=== PATIENT | male | born 1975 | race Caucasian/White ===

== ENCOUNTER 2023-08-13 18:36 | Outpatient (REF) | payer MEDICAID, SELFPAY ==
[2023-08-13 21:38] LABS: Abs Immature Grans 0.01 10^3/uL (0.0-0.06); Absolute Eosinophil Count 0.39 10^3/uL (0.0-0.7); Absolute Lymphocyte Count 2.18 10^3/uL (1.2-3.4); Absolute Monocyte Count 0.52 10^3/uL (0.1-0.8); Absolute Neutrophil Count 2.99 10^3/uL (1.2-6.7); Basophils % 1.6; Eosinophils % 6.3; HCT 49.2 % (40.0-50.0); Immature Grans % 0.2; Lymphocytes % 35.2; MCH 31.5 pg (27.0-33.0); MCHC 34.6 % (32.0-36.0); MCV 91 fL (80-95); MPV 9.4 fL (8.0-11.0); Monocytes % 8.4; Neutrophils % 48.3; Platelet Count 285 10^3/uL (130-400); RDW 11.9 % (11.8-14.1); RDW-SD 39.6 fL; WBC 6.19 10^3/uL (4.4-10.8)
[2023-08-13 22:06] LABS: ALT 28 U/L (16-63); AST 14 U/L (15-37); Alkaline Phosphatase 89 U/L (46-116); Anion Gap 7.6 mmol/L (3-11); BUN 16 mg/dL (7-18); Bilirubin, Total 0.8 mg/dL (0.2-1.0); CO2 29.4 mmol/L (21.0-32.0); CREATININE 1.2 mg/dL (0.70-1.30); Calcium 9.7 mg/dL (8.5-10.1); Chloride 105 mmol/L (98-107); Estimated GFR 75.06 (mL/min/1.73m2); Glucose 90 mg/dL (74-106); Potassium 4.4 mmol/L (3.5-5.1); Sodium 142 mmol/L (136-145); Total Protein 7.4 g/dL (6.4-8.2)
[2023-08-13 22:18] LABS: C-Reactive Protein < 0.50 mg/dL (<or=0.5)
== END 2023-08-13 18:37 | disposition home or self-care (01) ==
LOC: LBN 18:36
PROVIDERS: Visit Provider Physician Assistant Medical
DX: R10.32 Left lower quadrant pain (principal); R53.83 Other fatigue
CPT/HCPCS: 80053; 84443; 85025; 86140

== ENCOUNTER 2024-01-31 12:35 | Outpatient (CLI) | payer MEDICAID, SELFPAY ==
[2024-02-02 13:03] LABS: HIV-1/2 Ag & Ab Screen Negative (Negative)
[2024-02-03 10:35] LABS: Syphilis Serology (RPR) Negative (Negative)
[2024-02-03 13:07] LABS: Hep B Core Antibody Negative (Negative)
== END 2024-01-31 12:36 | disposition home or self-care (01) ==
LOC: LBO 12:36
PROVIDERS: PCP Nurse Practitioner Family; Visit Provider Nurse Practitioner Family
DX: Z11.3 Encounter for screening for infections with a predominantly sexual mode of transmission (principal); Z23 Encounter for immunization; F32.9 Major depressive disorder, single episode, unspecified; K21.9 Gastro-esophageal reflux disease without esophagitis; Z00.00 Encounter for general adult medical examination without abnormal findings
CPT/HCPCS: 36415; 86704; 87389; 86592

== ENCOUNTER 2024-05-29 15:00 | Outpatient (CLI) | payer MEDICAID, SELFPAY ==
[2024-05-29 15:33] LABS: HCT 49.2 % (40.0-50.0); HGB 16.9 g/dL (13.5-17.5); MCH 31.1 pg (27.0-33.0); MCHC 34.3 % (32.0-36.0); MCV 91 fL (80-95); MPV 9.1 fL (8.0-11.0); Platelet Count 262 10^3/uL (130-400); RBC 5.43 10^6/uL (4.36-5.78); RDW 12.1 % (11.8-14.1); RDW-SD 39.9 fL
[2024-05-29 16:27] LABS: ALT 24 U/L (16-63); AST 17 U/L (15-37); Albumin 4.1 g/dL (3.4-5.0); Alkaline Phosphatase 88 U/L (46-116); Anion Gap 7.3 mmol/L (3-11); BUN 21 mg/dL (7-18); Bilirubin, Total 1.25 mg/dL (0.2-1.0); CO2 30.7 mmol/L (21.0-32.0); CREATININE 1.3 mg/dL (0.70-1.30); Calcium 9.5 mg/dL (8.5-10.1); Chloride 106 mmol/L (98-107); Estimated GFR 67.76 (mL/min/1.73m2); Glucose 101 mg/dL (74-106); Potassium 4.5 mmol/L (3.5-5.1); Sodium 144 mmol/L (136-145); Total Protein 7.7 g/dL (6.4-8.2)
[2024-06-01 10:17] LABS: Lyme Ab w Rflx to Lyme Confirm Negative (Negative)
[2024-06-02 13:17] LABS: Anaplasma phagocytophilum Negative (Negative); B. miyamotoi PCR Negative (Negative); Babesia divergens/MO-1 Negative (Negative); Babesia duncani Negative (Negative); Babesia microti Negative (Negative); Ehrlichia chaffeensis Negative (Negative); Ehrlichia ewingii/canis Negative (Negative); Ehrlichia muris eauclairensis Negative (Negative)
== END 2024-05-29 15:01 | disposition home or self-care (01) ==
LOC: LBO 15:04
PROVIDERS: PCP Nurse Practitioner Family; Visit Provider Nurse Practitioner Family
DX: M35.3 Polymyalgia rheumatica (principal)
CPT/HCPCS: 36415; 80053; 85027; 87798; 86618

== ENCOUNTER 2024-07-13 15:25 | Outpatient (CLI) | payer MEDICAID, SELFPAY ==
[2024-07-13 13:39] LABS: Kit/Specimen SENT
[2024-07-13 15:04] LABS: FREE T4 0.97 ng/dL (0.76-1.46); TSH 2.04 uIU/mL (0.36-3.74); Vitamin B12 506 pg/mL (193-986); Vitamin D 25 Total 23.7 ng/mL (30-100)
[2024-07-13 15:05] LABS: Folate > 20.0 ng/mL (8.6-20.0)
[2024-07-13 21:18] LABS: Rheumatoid Factor <8.6 IU/mL (<12.0)
[2024-07-13 21:33] LABS: T3,Free 3.8 pg/mL (2.8-5.3)
[2024-07-14 09:39] LABS: ANA Interpretation Negative (Negative)
== END 2024-07-13 15:26 | disposition home or self-care (01) ==
LOC: LBO 15:27
PROVIDERS: PCP Nurse Practitioner Family; Visit Provider Naturopath
DX: R42 Dizziness and giddiness (principal); R53.83 Other fatigue; R00.2 Palpitations; R07.9 Chest pain, unspecified; E07.9 Disorder of thyroid, unspecified
CPT/HCPCS: 36415; 82306; 82607; 82746; 84439; 84443; 84481; 86038; 86431

== ENCOUNTER 2024-07-17 00:24 | Outpatient (CLI) | payer MEDICAID, SELFPAY ==
--- NOTE | 2024-07-17 | DI.RAD_ITS ---
Exam(s) XR SHOULDER RT COMPLETE 2+V EXAM: XR SHOULDER RT COMPLETE 2+V CLINICAL HISTORY: Pain in rt shoulder, M25.511, ? arthritis. TECHNIQUE: 2D digital imaging was performed of the right shoulder. Five images were obtained. AP, Grashey, Y-view and axillary views were obtained. COMPARISON: No exams were available for comparison FINDINGS: BONES: No acute fracture is present. No bony destructive lesion is seen. JOINTS: No dislocation present. The joint spaces are well maintained. SOFT TISSUE: Normal. IMPRESSION: Unremarkable radiographs of the right shoulder. DATA REPOSITORY: RADIATION DOSE DELIVERED:
--- NOTE | 2024-07-17 | DI.RAD_ITS ---
Exam(s) XR KNEE RT 3V AP,LAT,BHARATH EXAM: XR KNEE RT 3V AP,LAT,BHARATH CLINICAL HISTORY: Pain in rt knee, M25.561, ? arthritis. TECHNIQUE: 2D digital imaging was performed of the right knee. Three views obtained. AP, lateral an d PA tunnel views were obtained. COMPARISON: No exams were available for comparison FINDINGS: BONES: No acute fracture is present. No bony destructive lesion is seen. There is an enthesophyte at the superior patella. JOINTS: The knee is normally aligned. No joint effusion is seen. SOFT TISSUE: There is a small calcification adjacent to the medial femoral condyle which may reflect remote injury. IMPRESSION: No significant arthrosis. DATA REPOSITORY: RADIATION DOSE DELIVERED:
--- NOTE | 2024-07-17 | DI.RAD_ITS ---
Exam(s) XR HAND RT COMPLETE EXAM: XR HAND RT COMPLETE CLINICAL HISTORY: Pain in rt hand, M79.641, ? arthritis. TECHNIQUE: 2D digital imaging was performed of the right hand. Three images were obtained. AP, late ral and oblique views were obtained. COMPARISON: No exams were available for comparison FINDINGS: BONES: No acute fracture is present. No bony destructive lesion is seen. JOINTS: No dislocation present. The joint spaces are well maintained. SOFT TISSUE: Normal. IMPRESSION: There is no arthrosis of the right hand. DATA REPOSITORY: RADIATION DOSE DELIVERED:
--- NOTE | 2024-07-17 | DI.RAD_ITS ---
Exam(s) XR HAND LT COMPLETE EXAM: XR HAND LT COMPLETE CLINICAL HISTORY: pain in lt hand, M79.642, ? arthritis. TECHNIQUE: 2D digital imaging was performed of the left hand. Three views were obtained. AP, later al and oblique views were obtained. COMPARISON: No exams were available for comparison FINDINGS: BONES: No acute fracture is present. No bony destructive lesion is seen. There is a bone island in th e lunate. JOINTS: No dislocation present. The joint spaces are well maintained. SOFT TISSUE: Normal. IMPRESSION: No arthrosis is seen in the left hand. DATA REPOSITORY: RADIATION DOSE DELIVERED:
--- NOTE | 2024-07-17 | DI.RAD_ITS ---
Exam(s) XR SHOULDER LT COMPLETE 2+V EXAM: XR SHOULDER LT COMPLETE 2+V CLINICAL HISTORY: Pain in lt shoulder, M25.512, ? arthritis. TECHNIQUE: 2D digital imaging was performed of the left shoulder. Five images were obtained. AP, G rashey, Y-view and axillary views were obtained. COMPARISON: No exams were available for comparison FINDINGS: BONES: No acute fracture is present. No bony destructive lesion is seen. JOINTS: No dislocation present. The joint spaces are well maintained without evidence of arthrosis. SOFT TISSUE: Normal. IMPRESSION: Unremarkable radiographs of the left shoulder. DATA REPOSITORY: RADIATION DOSE DELIVERED:
--- NOTE | 2024-07-17 | DI.RAD_ITS ---
Exam(s) XR KNEE LT 3V AP,LAT,BHARATH EXAM: XR KNEE LT 3V AP,LAT,BHARATH CLINICAL HISTORY: Pain in lt knee, M25.562, ? arthritis. TECHNIQUE: 2D digital imaging was performed of the left knee. Three images were obtained. AP, late ral and PA tunnel views were obtained. COMPARISON: No priors for comparison. FINDINGS: BONES: No acute fracture is present. No bony destructive lesion is seen. There is a small enthesophy te at the superior patella. JOINTS: The knee is normally aligned. No joint effusion is seen. No loose body. SOFT TISSUE: There well corticated osseous densities anterior to the anterior tibial tuberosity which are chronic. IMPRESSION: No significant arthrosis. DATA REPOSITORY: RADIATION DOSE DELIVERED:
== END 2024-07-17 00:44 ==
LOC: DI 00:24
PROVIDERS: PCP Nurse Practitioner Family; Visit Provider Naturopath
DX: M25.512 Pain in left shoulder (principal); M25.511 Pain in right shoulder; M25.562 Pain in left knee; M25.561 Pain in right knee; M79.641 Pain in right hand; M79.642 Pain in left hand
CPT/HCPCS: 73562; 73030; 73130

== ENCOUNTER 2025-02-25 16:28 | Outpatient (CLI) | payer BC, SELFPAY ==
[2025-02-25 18:14] LABS: Calculated LDL 131 mg/dL (<100); Cholesterol 204 mg/dL (<200); HDL Cholesterol 46 mg/dL (>or=40); Triglyceride 138 mg/dL (<150)
== END 2025-02-25 16:29 | disposition home or self-care (01) ==
LOC: LBO 16:28
PROVIDERS: PCP Family Medicine; Visit Provider Family Medicine
DX: Z13.220 Encounter for screening for lipoid disorders (principal)
CPT/HCPCS: 36415; 80061

== ENCOUNTER 2025-05-31 18:21 | Emergency (ER) | payer OTHER, SELFPAY ==
[2025-05-31 18:25] VITALS: BP 161/77; PULSE 61; RESP 16; TEMP 37; O2SAT 98
--- NOTE | 2025-05-31 18:30 | DI.RAD_ITS ---
Exam(s) XR KNEE LT 3V AP,LAT,BHARATH EXAM: XR KNEE LT 3V AP,LAT,BHARATH CLINICAL HISTORY: L knee pain. TECHNIQUE: 2D digital imaging was performed of the left knee. Three images were obtained. AP, lateral and PA tunnel views were obtained. COMPARISON: CR XR KNEE LT 3V AP,LAT,BHARATH from 07/17/2024 FINDINGS: BONES: No acute fracture is present. No bony destructive lesion is seen. There is a small enthesophyte at the superior patella. JOINTS: The knee is normally aligned. There is a small joint effusion. No loose body. SOFT TISSUE: There again seen well corticated osseous densities anterior to the anterior tibial tuberosity which appear chronic. There is mild soft tissue swelling anterior to the tuberosity. IMPRESSION: 1. There is no acute fracture or dislocation. 2. The preliminary [facility] report was reviewed. DATA REPOSITORY: RADIATION DOSE DELIVERED:
--- NOTE | 2025-05-31 19:50 | ED.GENADUL_ITS ---
Discharge Plan Disposition Patient Disposition: Home Condition: Stable Discharge Details Clinical Impression: Internal derangement of left knee Primary Care Provider: Matoe Watts ED Provider: Vladimir Guzman Home Meds and New Rx's Prescriptions: No Action psyllium husk [Daily Fiber] 0.4 gram capsule 1.6 g PO DAILY pantoprazole 40 mg tablet,delayed release (DR/EC) 40 mg PO DAILY Qty: 90 3RF Discharge Instructions Instructions: Internal Derangement of the Knee Additional Instructions: You were seen in the emergency department for your fall with send left knee injury and tenderness at the joint line, there is no fracture on your x-ray, your exam is suspicious for either meniscus or ACL injury. I have placed you on the orthopedic follow-up list, until then please remain in the knee immobilizer and use crutches with partial weightbearing as tolerated. Please rest, ice, compress and elevate the knee often, ice to complete numbness then let rewarm and repeat this as many times as possible. Please use therapeutic dosing of Tylenol (acetamenophen) & Advil (ibuprofen) in an alternating fashion as follows: Take 1000mg of Tylenol every 6 hours without missing doses- that is 4 times per day. [place] in between the Tylenol dosings, take 400-600mg of Advil also on a 6 hour schedule, that is also 4 times per day. The daily maximum dosing of Tylenol is 4000mg, and the daily maximum dosing of Advil is 2400mg. This is safe to do for weeks. Please note that some common cold medications & prescription pain medications may contain acetamenophen and you need to read OTC drug labels and factor that in to maximum daily dosings. Stand Alone Forms: Portal Information, Work Release Referrals: [facility] [Provider Group] Mateo Watts MD [Primary Care Provider, Medicine] HPI General Date/Time Provider Initiated Documentation: 05/31/25 18:31 . 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 Quality described as pain inside the knee joint, feels like it wants to lock up, no radiation to gross swelling, deformity, bruising, numbness/tingling distally, hip pain. Patient is R-side dominant. Severity is described as moderate. Palliating factors include nothing specific attempted. Provoking factors include ambulating, flexion. Patient not anticoagulated. Related Data Home Medications ?Medication ?Instructions ?Recorded ?Confirmed psyllium husk 0.4 gram capsule 1.6 g PO DAILY 01/31/24 05/31/25 (Daily Fiber) pantoprazole 40 mg tablet,delayed 40 mg PO DAILY #90 t abs 03/12/25 05/31/25 release Previous Rx's ?Medication ?Instructions ?Recorded pantoprazole 40 mg tablet,delayed 40 mg PO DAILY #90 t abs 03/12/25 release Allergies Allergy/AdvReac Type Severity Reaction Status Date / Time No Known Allergies Allergy Verified 05/31/25 18:30 General Stated Complaint: Orthopedic RUFINA: 4 Review of Systems All systems reviewed & are unremarkable except as noted in HPI and below Exam Narrative Exam Narrative: GENERAL APPEARANCE: Well-nourished, non-toxic, awake and alert, atraumatic, no acute distress. SKIN: Warm, pink, dry, intact, without rashes/lesions/ulcerations. HEAD: Normocephalic, atraumatic, normal hair distribution for gender/age. EYES: Normal conjunctiva, no exudates on lids/lashes. ENT: Nares patent, no circumoral cyanosis, no facial swelling NECK: Supple, trachea midline, painless cervical ROM. LUNGS/CHEST: Non-labored respirations, normal A/P diameter, symmetrical expan andra, no chest wall deformity HEART (CV/PV): No peripheral edema, no JVD. ABDOMEN: Soft, non-distended, no guarding. MSK: No cyanosis, spine midline without tenderness, normal curvature. L KNEE: Joint line tenderness to the left knee, patella without crepitus and mobile, no popliteal fossa tenderness, no ligamentous laxity with varus valgus forces, question slight laxity with anterior drawer, patient not tolerant of Krystal testing, sensation intact distal, able to bear weight NEURO: Mental Status AAOx4 - alert to person, place, time, events No facial droop, no forehead involvement. Motor: No focal weakness Sensory: sensation intact to light touch globally. Gait antalgic. PSYCH: euthymic, cooperative, pleasant, appropriate speech Course Vital Signs Vital signs: Vital Signs Temperature 37 C 05/31/25 18:25 Pulse 61 05/31/25 18:25 Respiratory Rate 16 05/31/25 18:25 Blood Pressure 161/77 H 05/31/25 18:25 Pulse Oximetry 98 05/31/25 18:25 Temperature 37 C 05/31/25 18:25 Temperature Source Tympanic 05/31/25 18:25 Pulse 61 05/31/25 18:25 Respiratory Rate 16 05/31/25 18:25 Blood Pressure 161/77 H 05/31/25 18:25 Blood Pressure Position Sitting 05/31/25 18:25 Pulse Oximetry 98 05/31/25 18:25 Oxygen Delivery Method Room Air 05/31/25 18:25 Oxygen Flow Rate 0 05/31/25 18:25 Pain Level 3 05/31/25 18:25 Medical Decision Making This dictation utilizes sdnet-se-actt dictation software and may contain unedited grammatical errors. 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 Quality described as pain inside the knee joint, feels like it wants to lock up, no radiation to gross swelling, deformity, bruising, numbness/tingling distally, hip pain. Patient is R-side dominant. Severity is described as moderate. Palliating factors include nothing specific attempted. Provoking factors include ambulating, flexion. Patients' medical history: Oxyhood Vega disease. 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 Pertinent exam findings / vital signs include left knee joint line tenderness without ecchymosis, patella without crepitus, mobile, no popliteal fossa tenderness, no ligamentous laxity with varus or valgus forces applied, questionable anterior drawer, patient not tolerating Krystal test. Differential / pathologies of concern include internal derangement of knee, meniscus injury versus ACL injury. Diagnostic studies of: - X-ray left knee-no acute fracture seen. Interventions of: - Knee immobilizer and crutches, weightbearing as tolerated, placed on Ortho referral list. ED Course/Assessment/Plan: 50-year-old male had a fall in the gym class today at work at the school with left knee pain, feels like it wants to lock up so possible meniscus injury, I also question some slight laxity with anterior drawer testing, patient was not tolerant of Meenakshi test, I recommend immobilization, RICE therapy, weightbearing as tolerated, therapeutic dosing of Tylenol and ibuprofen and placed on orthopedic follow-up list. Findings not consistent with fracture or neurovascular compromise. Disposition of internal derangement of left knee. Patient verbalized understanding of the plan and return to ED criteria and engaged in shared decision making. Medical Records Medical records reviewed: Yes I reviewed the patient's medical records. Imaging Data Radiologic Study: Attestation: I personally reviewed and interpreted this imaging study as follows: Imaging: X-Ray Radiologist's impression: Exam: XR Left Knee Exam date and time: 05/31/2025 6:48 PM Age: 50 years old Clinical indication: Left knee pain TECHNIQUE: Imaging protocol: Radiologic exam of the left knee. Views: 3 views. COMPARISON: CR XR KNEE LT 3V AP,LAT,BHARATH 07/17/2024 12:13 PM FINDINGS: Bones/joints: No suspicious osseous lytic or blastic lesion. No discrete or displaced fracture. No joint dislocation. Trace/mild fluid within the suprapatellar recess. Redemonstrated chronic changes of the tibial tuberosity suggesting old [place]-Schlatter disease versus remote tibial tuberosity fracture with chronic non osseous union, correlate clinically. Soft tissues: Anterior soft tissue edema centered over tibial tuberosity similar to comparison exam.. IMPRESSION: No acute fracture. Dictated and Authenticated by: Rodri Tompkins MD. Quality:SDOH Health Related Social Needs: Health related social needs lonely/isolated Health related social needs details none PFSH All Active Problems (Updated 05/31/25 @ 20:03 by GARRETT Flores) Internal derangement of left knee (Acute) Penis injury (Acute) Mitral valve prolapse (Acute) Major depression, chronic (Acute) GERD (gastroesophageal reflux disease) (Chronic) Family History (Updated 01/31/24 @ 11:09 by Guillermina Sommers) Mother Dementia Depression Hypertension Father Alcohol use disorder Depression Sister Depression Maternal Grandmother Dementia Hypertension Maternal Grandfather Depression Dementia Paternal Grandmother Alcohol use disorder Heart disease Hyperlipidemia Paternal Grandfather Alcohol use disorder Cancer Social History (Updated 01/31/24 @ 11:07 by Guillermina Sommers) Smoking/Tobacco Use Status: Never Smoking risk assessment performed?: Yes Alcohol Intake: current Alcohol Intake frequency: a few times a month Alcohol type: beer and wine Drug use: Rarely Substance use type: marijuana and hallucinogens Counseling given: No Adopted: No Caregiver/Support person: No Foster care: No Household members: none Housing: apartment Number of Children: 0 number of grandchildren: 0 Communication Needs: None Education Level: college Details: BA Do you need help understanding health information?: Rarely current occupation: [employer] Sexually active: Yes Do you think of yourself as: straight/heterosexual Current gender identity: male What is your relationship status?: never How often do you talk on the phone with friends or family?: once per week How often do you get together with friends or relatives?: once per week How often do you attend yarsani or baptist services?: 4 or more times per year Do you belong to any clubs or organized social groups?: yes Panel score (0-1 are the most socially isolated patients): 2 What type of physical activity do you participate in: yoga Duration: 15-30 minutes/day Frequency: 3-4 times per week Zeynep/Zoroastrianism: Animism Seatbelt use: always Drive intox or ride w/intox route sales driver: No Firearms in home: No Do you feel safe at home: Yes
--- NOTE | 2025-05-31 19:59 | DI.[facility]_ITS ---
PROCEDURE INFORMATION: Exam: XR Left Knee Exam date and time: 05/31/2025 6:48 PM Age: 50 years old Clinical indication: Left knee pain TECHNIQUE: Imaging protocol: Radiologic exam of the left knee. Views: 3 views. COMPARISON: CR XR KNEE LT 3V AP,LAT,BHARATH 07/17/2024 12:13 PM FINDINGS: Bones/joints: No suspicious osseous lytic or blastic lesion. No discrete or displaced fracture. No joint dislocation. Trace/mild fluid within the suprapatellar recess. Redemonstrated chronic changes of the tibial tuberosity suggesting old [place]-Schlatter disease versus remote tibial tuberosity fracture with chronic non osseous union, correlate clinically. Soft tissues: Anterior soft tissue edema centered over tibial tuberosity similar to comparison exam.. IMPRESSION: No acute fracture. Dictated and Authenticated by: Rodri Tompkins MD. Orderin Megan Gilbert MD
--- NOTE | 2025-06-01 07:34 | NUR.NOTE ---
Access chart to determine the discharge diagnosis and print the demographic sheet for [facility] billing requisition.. Nursing Note:
== END 2025-05-31 20:03 | disposition home or self-care (01) ==
PROVIDERS: Emergency Provider Physician Assistant; PCP Family Medicine
DX: W01.0XXA Fall on same level from slipping, tripping and stumbling without subsequent striking against object, initial encounter; Y99.0 Civilian activity done for income or pay; M25.562 Pain in left knee; M23.92 Unspecified internal derangement of left knee
CPT/HCPCS: 99283 ×2; 73562